=== PATIENT | female | born 1985 | race Caucasian/White ===

== ENCOUNTER 2018-02-14 06:05 | Day surgery (SDC) | payer OTHER ==
[2018-02-12 16:32] LABS: Absolute Monocytes 0.5 K/uL (0.1-1.3); Absolute Neutrophil 5.3 K/uL (1.8-8.0); Basophils % 0.7 % (0-1.3); Eosinophils % 8.4 % (0-4.4); Hematocrit 40.9 % (36.0-45.0); Lymphocytes % 23.4 % (15.3-44.8); MCH 32.7 pg (27.0-35.0); MCV 96.9 fL (80-100); MPV 9.4 fL (7.6-11.3); Monocytes % 5.6 % (3.3-12.3); RBC Red Blood Cell Count 4.22 M/uL (3.86-4.86)
[2018-02-12 16:37] LABS: Urine Appearance CLEAR; Urine Bilirubin NEGATIVE (NEG); Urine Blood NEGATIVE (NEG); Urine Color YELLOW; Urine Glucose NEGATIVE (NEG); Urine Protein NEGATIVE (NEG); Urine Urobilinogen 0.2 mg/dL (0.2-1.0)
[2018-02-12 16:49] LABS: Urine Microscopic Reflex NO UMIC
[2018-02-14] MEDS ORDERED: Ringers Lactate 1,000 ML IV ONE ×2 (06:23→08:16)
[2018-02-14] MEDS ORDERED: SCOPOLAMINE HYDROBROMIDE PATCH TD ONE (06:23)
[2018-02-14] MEDS ORDERED: PROPOFOL 200 MG/20 ML VIAL IV ONE (07:00)
[2018-02-14] MEDS ORDERED: ROCURONIUM 50 MG/5 ML VIAL IV ONE (07:00)
[2018-02-14] MEDS ORDERED: LIDOCAINE 2% MPF 5 ML VIAL ONE (07:01)
[2018-02-14] MEDS ORDERED: MIDAZOLAM HCL 2 MG/2 ML INJ ONE (07:01)
[2018-02-14] MEDS ORDERED: GLYCOPYRROLATE 0.2 MG/ML SYR ONE ×2 (07:01)
[2018-02-14] MEDS ORDERED: FENTANYL CITR 250 MCG/5 ML ONE (07:01)
[2018-02-14] MEDS ORDERED: KETOROLAC 30 MG/ML INJ ONE (08:39)
[2018-02-14] MEDS ORDERED: Mastisol Adhesive Liq ONE (09:08)
[2018-02-14] MEDS ORDERED: MEPERIDINE HCL 25 MG/0.5 ML ONE (09:45)
[2018-02-14] MEDS ORDERED: HYDROCODONE/APAP 5/325 MG TAB ONE (10:43)
--- NOTE | 2018-02-16 03:16 | OP ---
Date of Procedure: 02/14/2018 Surgeon: Tiffanie Mccormick MD Plumber Maintenance: Deboarh Braswell. Preoperative Diagnoses: Irregular menstrual bleeding, pelvic pain, and dysmenorrhea. Postoperative Diagnoses: Irregular menstrual bleeding, pelvic pain, dysmenorrhea, and endometriosis of the pelvic peritoneum and the left ovary. Procedures Performed: 1.Diagnostic hysteroscopy, adjustment of the IUD. 2.Diagnostic laparoscopy, extensive endometriosis excision, left ovarian cyst incision and drainage, and excision of left ovarian endometriosis. Anesthesia: General endotracheal. Estimated Blood Loss: Minimal. Specimens: Left ovarian endometriosis, right uterosacral, left lateral wall, left uterosacral, left posterior cul-de-sac nodule, and right lateral abdominal wall/pelvic brim peritoneal implants. Condition: The patient's condition is stable. Complications: No complications. Drains: No drains. Findings: Endometriosis was seen on the right lateral wall above the level of the pelvic brim and al most towards the right anterior abdominal wall. Then, there was endometriosis at the distal right ut erosacral medial to the attachment of the uterosacral and the left uterosacral had endometriosis as w ell the medial and lateral sides along the ligament, and left lateral wall superior and lateral to th em. Implants at the uterosacral ligament. There was a left posterior cul-de-sac nodule that was in the left pararectal space, this was excised and there was a left ovarian endometriosis that was prese nt to the superior and posterior pole of the ovary towards the utero-ovarian ligament. There was a l arge left ovarian cyst of about 3 to 4 cm that appeared to be simple in physiologic, which was also d rained. Description Of Procedure: After informed consent was verified, the patient was taken back to the OR, she was placed in the supine fashion on the operating table. After general anesthesia was given, ceci e was placed in a dorsal lithotomy position using Ten stirrups. The arms were tucked by the side. Uterus was found to be slightly retroflexed. No adnexal masses were palpable. Abdomen, vulva, vagina, and perineum were prepped and draped in a sterile fashion. Alan was placed to drain the bladder and the cervix was exposed with a bivalve speculum. Anterior lip grasped with 2 Allis clamps. Diagnostic hysteroscopy was performed. The tips of the ParaGard IUD strings were see n. After hysteroscopy was performed, the uterine cavity was well visualized, the T was placed perfec tly in the cavity. The distal part of the ParaGard appeared to be slightly coiled up, however, no ot her problems were seen. Endometrial cavity linings were absolutely unremarkable, no intracavitary le sions. Scope was pulled out. VCare diagnostic was introduced and fixed in place. This area was then draped. A 1 cm infraumbilical incision was made with a scalpel using the open laparoscopy technique. Fascia was incised and tagged. The peritoneum entered bluntly, S retractors placed and Amalia introduced. Site of entry was checked and was unremarkable. Upper abdominal surfaces were well visualized, no ev idence of any endometriosis around the diaphragm on both sides. On inspecting the pelvic aspect of t he peritoneal cavity, on the right lateral wall there was an endometriosis implant. Then, there were implants as dictated in the findings. So once all these were visualized, the right lower quadrant 5 port was also placed for retraction and help during the excision. The 5 mm suprapubic and left lowe r quadrant ports were placed without any problems. All the implants were well visualized, first started with the right uterosacral implant. This was pi cked up after the ureter was identified from the pelvic brim to the ureteric tunnel and there was no anatomic distortion. An incision was made on the lateral aspect of the implant to dissect away the u reter and this was incised with a monopolar needle tip. Then, in a nice wide fashion, dissection was carried until the normal tissue was seen and it was all excised. The implant was then removed in it s entirety, pictures were taken. Went on to remove the left lateral wall first, which was superior and lateral to the ureter. This im plant was picked up on the peritoneum next to it and then on the lateral aspect of this implant incis ion was made with the monopolar needle. This was incised and the peritoneum was incised all around a nd the implant was excised completely in a nice wide fashion. There were small left periovarian adhe sions to the lateral wall, these were taken down and the adhesion completely excised. No evidence of endometriosis was seen at this point. The left uterosacral implant was then removed and small part of the uterosacral ligament was also exc ised. Since this seemed to be infiltrating, so a wide excision was done here as well. The ureter wa s dissected laterally and the implant and the underlying tissues were dissected until normal healthy tissue was seen. Then attention was directed to the posterior cul-de-sac. Here the EEA Sizer was pl aced in the rectum. The posterior vaginal wall was noted and the left pararectal space was opened im mediately medial to the uterosacral ligament on the left side. The incision was made with a monopola r hook blade in the lateral aspect. Then with push-spread technique, the perirectal fat was dissecte d and all the implant was raised. Then on the medial aspect scissors were used to take down the jostin toneal incision and once it was safer to use the monopolar and it was away from the bowel, that is wh at I used, and then the implant was completely excised in its entirety. This was more nodular as wel l. The tip of the implant appeared to be smaller than what was inside. Once all this was removed, t here was just no more nodularity or scar, and this appeared to be healthy tissue. Attention was directed to the left ovary where the posterior ovarian tissue was picked up, monopolar needle was used to open the left ovarian cyst, in a linear fashion drainage was done, looked to make sure that this was not an extension of the endometriosis and it was not. Once this was confirmed at t he base, then the endometriosis was excised with holding the utero-ovarian ligament with a grasper an d excising the entire implant until normal tissue was seen. Not a very large amount of the ovary was excised, maybe a 1 cm area, half a cm area was removed. Once this was done, there was some bleeding , so 3-0 Vicryl was used using an SH needle in a [id number] fashion, a suture was placed and tie d together so that the raw surface would not create more adhesions. The cyst appeared to be hemostatic. The right lateral wall implant was excised widely with a monopol ar hook blade as well and all these were handed off for permanent pathology. Thorough irrigation and suction copiously were done with normal saline and then after hemostasis was secured in all places a nd the rectum was completely unremarkable, the Sizer was removed, the VCare was removed, all the port s were removed, the gas was desufflated, Amalia was removed. Fascia closed with a 0 Vicryl figure-of -eight, subcutaneous simple 0 Vicryl, and then 4-0 Vicryl for all skin incisions. The patient was re covered from anesthesia. The cervix was exposed with a speculum again after the VCare was removed, I just want to make sure th at the IUD was in the right place and after the IUD placement was checked, the strings appeared to be tucked inside the cavity likely by inserting manipulator in, these were attempted to be pulled down so they would be in the canal. Once this was done and adequate placement was confirmed, the scope wa s removed. All instruments were removed. Instrument, needle, and sponge counts were done and were c orrect at the end of the case. Alan was removed as well. The patient was recovered from anesthesia and taken to PACU in stable condition. SEBASTIAN Voice ID: [id number] Report ID: [id number]
== END 2018-02-14 11:37 | disposition home or self-care (01) ==
LOC: OR 06:05
PROVIDERS: ATTEND Obstetrics & Gynecology
PROC: 0WBN4ZX Excision of Female Perineum, Percutaneous Endoscopic Approach, Diagnostic (ICD-10-PCS; 2018-02-14)
PROC: 0UJD8ZZ Inspection of Uterus and Cervix, Via Natural or Artificial Opening Endoscopic (ICD-10-PCS; principal; 2018-02-14 07:00)
PROC: 0U914ZX Drainage of Left Ovary, Percutaneous Endoscopic Approach, Diagnostic (ICD-10-PCS; 2018-02-14 07:00)
DX: N92.6 Irregular menstruation, unspecified (principal); R10.2 Pelvic and perineal pain; N80.1 Endometriosis of ovary; N80.3 Endometriosis of pelvic peritoneum; N83.12 Corpus luteum cyst of left ovary
CPT/HCPCS: 36415; 81003; 81025; 85025; 86850; 86900; 86901; 88305; J2175; J2250